=== PATIENT | male | born 2000 | race African-American/Black ===

== ENCOUNTER 2025-02-20 09:58 | Emergency (ER) | payer OTHER, SELFPAY ==
--- NOTE | ~2025-02-20 | CT_ITS ---
EXAMINATION: CT abdomen pelvis wo con DATE: 02/20/2025 10:28 INDICATION: Right flank and groin pain TECHNIQUE: Computed tomography (CT) of the abdomen and pelvis was performed without intravenous contr ast. The dose-length product was 503.85 mGy-cm. Automated exposure control and iterative reconstructi on technique were employed. COMPARISON: None. FINDINGS: Lung bases unremarkable. Heart size normal. No significant pleural or pericardial effusion. The liver, spleen, pancreas, adrenal glands and kidneys are unremarkable. Nonobstructive bowel gas p attern. Gallbladder is present. No free air or free fluid. No evidence for hernia. Normal appendix. N o significant bone or joint abnormality. No renal/ureteral stones or hydronephrosis. IMPRESSION: 1. No acute abdominal abnormality. Reviewed, dictated and finalized at location A.
[2025-02-20 10:05] VITALS: BP 147/72; PULSE 67; RESP 16; TEMP 36.6; O2SAT 100
[2025-02-20 10:33] LABS: Add Urine Microscopic? NO; Appearance Urine Clear (Clear); Bilirubin Urine Negative (Negative); Blood Urine Negative (Negative); Color Urine Yellow (Yellow); Glucose Urine UA Negative (Negative); Ketones Urine Negative (Negative); Leukocyte Esterase Ur Negative LEU/UL (Negative); Nitrate Urine Negative (Negative); Protein Urine Negative (Negative); Specific Grav Ur 1.015 (1.001-1.035); pH Urine 6.5 (5.0-9.0)
--- NOTE | 2025-02-20 10:45 | PC.NURSE ---
called lab to add on GCCHLAMPCR to urine in lab.
--- OUTSIDE RECORDS SUMMARY | 2025-02-20 10:59 | XMS_ITS | Encounter Summary ---
Author Organization [facility] Address [address] [place] [address] Care Team Providers Care Liver Trimmer Name Role Phone Johnna Marin MD Primary Care Provider +1- [phone] Encounter Details Date Type Department Care Team (Late st Contact Info) Description 05/24/2003 Outpatient Historical [facility] [place] [address] [place] [address] Brent Maddox MD 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
--- OUTSIDE RECORDS SUMMARY | 2025-02-20 10:59 | XMS_ITS | Encounter Summary ---
Author Organization [facility] Address [address] [place] [address] Care Team Providers Care Reed Worker Name Role Phone Johnna Marin MD Primary Care Provider +1- [phone] Encounter Details Date Type Department Care Team (Late st Contact Info) Description 02/16/2001 Outpatient Historical [facility] [address] [place] [address] Huseyin Humphries MD [address] [place] [address] Social History Tobacco Use Types Packs/Day Years Used Date Smoking Tobacco: Never Assessed Sex and Gender Information Value Date Recorded Sex Assigned at Not on file 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
--- OUTSIDE RECORDS SUMMARY | 2025-02-20 10:59 | XMS_ITS | Encounter Summary ---
Author Organization [facility] Address 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
--- OUTSIDE RECORDS SUMMARY | 2025-02-20 10:59 | XMS_ITS | Encounter Summary ---
Author Organization [facility] Address [address] [place] [address] Care Team Providers Care Electrician Ship Name Role Phone Johnna Marin MD Primary Care Provider +1- [phone] Encounter Details Date Type Department Care Team (Late st Contact Info) Description 05/16/2002 Outpatient Historical [facility] Pediatric[facility] [place] [address] [place] [address] Huseyin Humphries MD [address] [place] [address] Social History Tobacco Use Types Packs/Day Years Used Date Smoking Tobacco: Never Assessed Sex and Gender Information Value Date Recorded Sex Assigned at Not on file 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
--- OUTSIDE RECORDS SUMMARY | 2025-02-20 10:59 | XMS_ITS | Encounter Summary ---
Author Organization [facility] Address [address] [place] [address] Care Team Providers Care Hotel Controller Name Role Phone Johnna Marin MD Primary Care Provider +1- [phone] Encounter Details Date Type Department Care Team (Late st Contact Info) Description 12/21/2001 Outpatient Historical [facility] Pediatric[facility] [place] [address] [place] [address] Brent Maddox MD [address] [facility] 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
--- OUTSIDE RECORDS SUMMARY | 2025-02-20 10:59 | XMS_ITS | Encounter Summary ---
Author Organization [facility] Address [address] [place] [address] Care Team Providers Care Manager Underwriting Name Role Phone Johnna Marin MD Primary Care Provider +1- [phone] Encounter Details Date Type Department Care Team (Late st Contact Info) Description 07/25/2001 Outpatient Historical [facility] [place] [address] [place] [address] Huseyin Humphries MD [address] [facility] [address] [place] [address] Social History Tobacco Use Types Packs/Day Years Used Date Smoking Tobacco: Never Assessed Sex and Gender Information Value Date Recorded Sex Assigned at Not on file 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
--- OUTSIDE RECORDS SUMMARY | 2025-02-20 10:59 | XMS_ITS | Encounter Summary ---
Author Organization [facility] Address [address] [place]: Epic Prelude ADT [place] [address] Care Team Providers Care Resident Service Coordinator Name Role Phone Johnna Marin MD Primary Care Provider +1- [phone] Encounter Details Date Type Department Care Team (Late st Contact Info) Description 1998 Inpatient Historical Johnna Marin MD [address] [place] [address] Single liveborn, born in hospital, delivered without mention of delivery (Primary Dx) Social History Tobacco Use Types Packs/Day Years Used Date Smoking Tobacco: Never Assessed Sex and Gender Information Value Date Recorded Sex Assigned at Not on file 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
--- OUTSIDE RECORDS SUMMARY | 2025-02-20 10:59 | XMS_ITS | Clinical Summary ---
Author Organization [facility] Address [address] 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
--- OUTSIDE RECORDS SUMMARY | 2025-02-20 10:59 | XMS_ITS | Encounter Summary ---
Author Organization [facility] [facility] Address [address] [place] [address] Care Team Providers Care Surveyor Instrument Assistant Name Role Phone Johnna Marin MD Primary Care Provider +1- [phone] Encounter Details Date Type Department Care Team (Late st Contact Info) Description 11/13/2000 Outpatient Historical [facility] [place] [address] [place] [address] Er, Authorized P NO ADDRESS ON FILE Unspecified otitis media (Primary Dx) Social History Tobacco Use Types Packs/Day Years Used Date Smoking Tobacco: Never Assessed Sex and Gender Information Value Date Recorded Sex Assigned at Not on file 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
--- OUTSIDE RECORDS SUMMARY | 2025-02-20 10:59 | XMS_ITS | Encounter Summary ---
Author Organization [facility] Address [address] [place] [address] Care Team Providers Care Charter Coordinator Name Role Phone Johnna Marin MD Primary Care Provider +1- [phone] Encounter Details Date Type Department Care Team (Late st Contact Info) Description 12/13/1999 Outpatient Historical [facility] Huseyin Humphries MD 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
--- OUTSIDE RECORDS SUMMARY | 2025-02-20 10:59 | XMS_ITS | Encounter Summary ---
Author Organization [facility] Address [address] [place] [address] Care Team Providers Care Community Organization Worker Name Role Phone Johnna Marin MD Primary Care Provider +1- [phone] Encounter Details Date Type Department Care Team (Late st Contact Info) Description 03/07/2001 Outpatient Historical [facility] Pediatrics [place] [address] [place] [address] Huseyin Humphries MD [address] [place] [address] Social History Tobacco Use Types Packs/Day Years Used Date Smoking Tobacco: Never Assessed Sex and Gender Information Value Date Recorded Sex Assigned at Not on file 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
[2025-02-20 12:57] LABS: Chlamydia trachomatis NOT DETECTED (NOT DETECTE); Neisseria gonorrhoeae PCR NOT DETECTED (NOT DETECTE)
[2025-02-20 13:17] VITALS: BP 133/87; PULSE 60; RESP 16; O2SAT 100
--- NOTE | 2025-02-20 14:38 | ED_ITS ---
HPI - Male Genitourinary General Chief complaint: Urogenital-Male Stated complaint: flank pain, testicular pain Time Seen by Provider: 02/20/25 10:09 History of Present Illness HPI Narrative: For last few days patient has noticed some pain to the right lower flank going down to his groin, he is not sure what the cause is, he has no penile drainage, pain with urination, fevers or chills, nausea vomiting Related Data Allergies Allergy/AdvReac Type Severity Reaction Status Date / Time No Known Allergies Allergy Verified 02/20/25 10:08 Review of Systems Review of Systems: All systems reviewed & are unremarkable except as noted in HPI and below Exam Narrative: EXAMINATION OF ORGAN SYSTEMS/BODY AREAS: Constitutional: Vital signs per nursing GENERAL:[No acute distress, non-toxic appearing.] HEAD: Normal with no signs of head trauma. EYES: EOMI, conjunctiva normal ENT: Hearing grossly intact LUNGS: Nonlabored breathing. HEART: [Regular rate and rhythm] ABD: [Soft], [nontender to palpation], no flank tenderness : No testicular swelling or tenderness EXT: Normal range of motion SKIN: [No rashes or lesions.] NEURO: [Alert and oriented x 3. No gross focal sensory or strength deficits.] PSYCH: Normal affect Course Vital Signs Vital signs: Vital Signs Temperature 97.8 F 02/20/25 10:05 Pulse Rate 67 02/20/25 10:05 Respiratory Rate 16 02/20/25 10:05 Blood Pressure 147/72 H 02/20/25 10:05 Pulse Oximetry 100 02/20/25 10:05 Temperature 97.8 F 02/20/25 10:05 Pulse Rate 60 02/20/25 13:17 Respiratory Rate 16 02/20/25 13:17 Blood Pressure 133/87 02/20/25 13:17 Pulse Oximetry 100 02/20/25 13:17 MDM - Male Genitourinary MDM Narrative Medical decision making narrative: Patient presenting here with concern for some right flank pain going to his g roin, he has school multiple different explanations of this, he is very well- appearing here, abdomen soft nontender, no flank tenderness, no testicular or scrotal tenderness, urine is negative, including gonorrhea chlamydia, and CT abdomen/pelvis unremarkable for signs of hernia or stone. I did offer ultrasound to rule out other causes such as hydrocele or varicocele, however given the negative urine and GC, felt very unlikely epididymitis, patient did feel comfortable following up with urology for outpatient ultrasound if still not improved Lab Data Labs: Lab Results 02/20/25 Range/Units 10:16 Urine Color Yellow (Yellow) Urine Appearance Clear (Clear) Urine pH 6.5 (5.0-9.0) Ur Specific [place] 1.015 (1.001-1.035) Urine Protein Negative (Negative) mg/dL Urine Glucose (UA) Negative (Negative) mg/dL Urine Ketones Negative (Negative) mg/dL Ur Blood (Man) Negative (Negative) Urine Nitrate Negative (Negative) Urine Bilirubin Negative (Negative) Urine Urobilinogen 1.0 (<2.0) mg/dL Leukocyte Esterase Rfl Negative (Negative) NELSON/UL C. trachomatis (PCR) Not detected (NOT DETECTE) N. gonorrhoeae (PCR) Not detected (NOT DETECTE) Discharge Plan Discharge Clinical Impression: Flank pain, Pain in scrotum or testicle Patient Disposition: Home Condition: Stable Instructions: Flank Pain (ED), Scrotal Pain (ED) Additional Instructions: Please follow up with the urologist and you can always return to the ER for any further issues. Patient Language: Greek Follow-up/Referrals: Davida Carmen MD [Physician] - 2 Days Modesto Barcenas MD [Physician] - 2 Days UNKNOWN,DOCTOR [Primary Care Provider] -
== END 2025-02-20 13:18 | disposition home or self-care (01) ==
PROVIDERS: Emergency Provider Emergency Medicine
DX: R10.31 Right lower quadrant pain (principal); N50.82 Scrotal pain
CPT/HCPCS: 74176; 81003; 87491; 87591; 99284